=== PATIENT | male | born 1995 | race American Indian/Alaskan Native ===

== ENCOUNTER 2017-06-25 14:21 | Emergency (ER) | payer MEDICAID ==
--- NOTE | 2017-06-25 14:54 | EDM.PDOC ---
ED HPI GENERAL MEDICAL PROBLEM - General Chief Complaint: ENT Problem Stated Complaint: RIGHT CHEEK SWELLING Time Seen by Provider: 06/25/17 14:29 Source of Information: Reports: Patient, RN Notes Reviewed - History of Present Illness INITIAL COMMENTS - FREE TEXT/NARRATIVE: 22-year-old male comes in with right facial pain and swelling. This started about 2 or 3 days ago. Swelling is worse today. Have numerous teeth of the right lower posterior jaw that have given him trouble in the past and also causing some discomfort at this time. He has not been running any fever. No throat pain or difficulty swallowing. Right Tooth/Teeth Pain Score (Numeric/FACES): 6 - Related Data Allergies Allergy/AdvReac Type Severity Reaction Status Date / Time No Known Allergies Allergy Verified 11/16/15 15:36 Home Meds: Home Meds Clindamycin HCl 300 mg PO QID #30 capsule 06/25/17 [Rx] Hydrocodone/Acetaminophen [[place] 5-325] 1 tab PO Q4H PRN #14 tablet 06/25/17 [Rx ] Past Medical History - Past Health History Medical/Surgical History: Denies Medical/Surgical History Social & Family History - Family History Family Medical History: Noncontributory - Tobacco Use Smoking Status *Q: Never Smoker Years of Tobacco use: 2 Packs/Tins Daily: 1 - Caffeine Use Caffeine Use: Reports: Soda - Recreational Drug Use Recreational Drug Use: No ED ROS ENT - Review of Systems Review Of Systems: See Below Constitutional: Denies: Fever, Chills HEENT: Reports: Dental Pain. Denies: Ear Discharge, Ear Pain, Throat Pain Respiratory: Denies: Shortness of Breath Cardiovascular: Denies: Chest Pain GI/Abdominal: Denies: Abdominal Pain, Nausea, Vomiting Musculoskeletal: Reports: No Symptoms Skin: Reports: No Symptoms Neurological: Reports: No Symptoms ED EXAM, ENT - Physical Exam Exam: See Below General Appearance: Alert, Mild Distress Ears: Normal External Exam, Normal Canal Nose: Normal Inspection Mouth/Throat: No: Throat Swelling, Tonsillar Erythema, Tonsillar Exudates, Tonsillar Swelling Head: Facial Swelling, Facial Tenderness (Mild tenderness right lateral jaw) Neck: Supple, Lymphadenopathy (R) (Mild) Respiratory/Chest: No Respiratory Distress, Lungs Clear Cardiovascular: Regular Rate, Rhythm Extremities: Normal Inspection Neurological: Alert, Oriented Skin: Warm, Dry, Normal Color Course - Vital Signs Last Recorded V/S: Last Vital Signs Temp 98.0 F 06/25/17 14:32 Pulse 83 06/25/17 14:32 Resp 18 06/25/17 14:32 BP 159/88 H 06/25/17 14:32 Pulse Ox 100 06/25/17 14:32 Departure - Departure Time of Disposition: 15:00 Disposition: Home, Self-Care 01 Condition: Fair Clinical Impression: Pain, dental - Discharge Information Prescriptions: Clindamycin HCl 300 mg PO QID #30 capsule Hydrocodone/Acetaminophen [[place] 5-325] 1 tab PO Q4H PRN #14 tablet PRN Reason: Pain Instructions: Dental Abscess, [id number] Referrals: PCP,None [Primary Care Provider] - Forms: ED Department Discharge Additional Instructions: Continue clindamycin 300 mg 4 times daily, take 2 doses today, amoxicillin 1000 mg twice daily, take both 1000 mg doses today. Continue both of those antibiotics until gone. See dentist as soon as possible early next week. Aleve one or 2 tabs twice daily for discomfort as needed, you may take Tylenol in addition or hydrocodone if needed for severe pain. Do not take Tylenol and hydrocodone same time, do not drive when taking hydrocodone.
== END 2017-06-25 15:20 | disposition home or self-care (01) ==
LOC: JD.ED 14:21
DX: K08.89 Other specified disorders of teeth and supporting structures (principal)
CPT/HCPCS: 99283